=== PATIENT | male | born 2000 | race African-American/Black ===

== ENCOUNTER 2020-01-30 12:40 | Emergency (ER) | payer SELFPAY ==
[~2020-01-30] VITALS: Ht 182.9 cm; Wt 106.8 kg
--- NOTE | 2020-01-30 13:03 | ED.ADGEN ---
Past Medical History Past Medical History: No Pertinent History General Adult EDM: Chief Complaint: CHEST PAIN HPI: HPI: Patient is a 19-year-old male who arrives ambulatory to the emergency department complaining of the abrupt onset of pain with deep breathing. Patient states this began roughly half an hour prior to arrival. Patient describes pain at the left side of his chest at the costal margin where the majority of his pain is. Patient states despite having this pain he is not had any cough or fever. He further denies any known sick contacts. Additionally he denies any history of coronary artery disease. He is awake, alert and anxious appearing. Review of Systems: Review of Systems: Constitutional: Denies fever or chills. [] Eyes: Denies change in visual acuity. [] HENT: Denies nasal congestion or sore throat. [] Respiratory: Positive for pain with deep breathing. Positive for chest wall pain. Denies cough or shortness of breath. [] Cardiovascular: Positive for chest wall pain. Denies edema. [] GI: Denies abdominal pain, nausea, vomiting, bloody stools or diarrhea. [] : Denies dysuria. [] Musculoskeletal: Denies back pain or joint pain. [] Integument: Denies rash. [] Neurologic: Denies headache, focal weakness or sensory changes. [] Endocrine: Denies polyuria or polydipsia. [] Lymphatic: Denies swollen glands. [] Psychiatric: Denies depression or anxiety. [] Allergies: Allergies: Allergies Coded Allergies Type Severity Reaction Last Updated Verified No Known Drug Allergies 01/30/20 No Physical Exam: PE: Constitutional: Well developed, well nourished, no acute distress, non-toxic appearance. [] HENT: Normocephalic, atraumatic, bilateral external ears normal, oropharynx moist, no oral exudates, nose normal. [] Eyes: PERRLA, EOMI, conjunctiva normal, no discharge. [] Neck: Normal range of motion, no tenderness, supple, no stridor. [] Cardiovascular:Heart rate regular rhythm, no murmur [] Lungs & Thorax: Mild tenderness to palpation at the left costal margin as well as left chest wall anteriorly. Bilateral breath sounds clear to auscultation [] Abdomen: Bowel sounds normal, soft, no tenderness, no masses, no pulsatile masses. [] Skin: Warm, dry, no erythema, no rash. [] Back: No tenderness, no CVA tenderness. [] Extremities: No tenderness, no cyanosis, no clubbing, ROM intact, no edema. [] Neurologic: Alert and oriented X 3, normal motor function, normal sensory f unction, no focal deficits noted. [] Psychologic: Affect normal, judgement normal, mood normal. [] Current Patient Data: Vital Signs: Vital Signs Date Time Temp Pulse Resp B/P (MAP) Pulse Ox O2 Delivery O2 Flow Rate FiO2 01/30/20 13:00 98.4 60 17 133/76 (95) 100 Room Air 98.4 EKG: EKG: EKG was obtained at 12:53 PM which demonstrates a normal sinus rhythm with a ventricular rate of 61 bpm. There are no acute ST-T wave changes denoting ischemia. Intervals are normal without ectopy. [] Heart Score: HEART Score for Chest Pain: HEART Score for Chest Pain Response (Comments) Value History Slighlty/Non-Suspicious 0 ECG Normal 0 Age < 45 0 Risk Factors No Risk Factors 0 Troponin < Normal Limit 0 Total 0 Risk Factors: Risk Factors: DM, Current or recent (<one month) smoker, HTN, HLP, family history of CAD, obesity. Risk Scores: Score 0 - 3: 2.5% MACE over next 6 weeks - Discharge Home Score 4 - 6: 20.3% MACE over next 6 weeks - Admit for Clinical Observation Score 7 - 10: 72.7% MACE over next 6 weeks - Early Invasive Strategies Radiology/Procedures: Radiology/Procedures: [][facility] [address] [place] [address] IMAGING REPORT Signed PATIENT: SHAMA GALLARDO ACCOUNT: [id number] : 2000 LOCATION: ER AGE: 19 SEX: M EXAM STATUS: REG ER ORD. PHYSICIAN: RENETTA JUNIOR DO REASON: chest pain PROCEDURE: CHEST PA & LATERAL INDICATION: Reason: chest pain / Spl. Instructions: / History: COMPARISON: None. FINDINGS: 2 view of chest obtained. No focal airspace consolidation. Cardiomediastinal contour unremarkable. No acute osseous abnormality. IMPRESSION: * No focal airspace consolidation or edema. Electronically signed by: Mckinley Starr MD (01/30/2020 1:45 PM) [id number] DICTATED and SIGNED BY: MCKINLEY STARR MD DATE: 01/30/20 [id number] 0 Course & Med Decision Making: Course & Med Decision Making Pertinent Labs and Imaging studies reviewed. (See chart for details) Patient had a chest x-ray as well as EKG obtained which were both within normal limits. After speaking the patient in greater detail does appear that he has a history of anxiety and does not regularly treat this with medication nor does he see a therapist with regularity. I did advise that it be in his best interest to obtain regular medical follow-up with the family physician of his choice as well as considered meeting with a therapist to further deal with his anxiety. The patient understands states he will do so. He does state he feels better now and at rest is without pain. He is nontoxic-appearing and stable for discharge Dragon Disclaimer: Vee Disclaimer: This electronic medical record was generated, in whole or in part, using a voice recognition dictation system. Departure Departure Impression: Primary Impression: Musculoskeletal chest pain Additional Impression: History of anxiety Disposition: 01 DC HOME SELF CARE/HOMELESS Condition: GOOD Referrals: NO PCP (PCP) Patient Instructions: Anxiety and Panic Attacks, Musculoskeletal Pain Scripts Cyclobenzaprine Hcl (CYCLOBENZAPRINE HCL) 5 Mg Tablet 1 TAB PO TID, #15 TAB Prov: RENETTA JUNIOR DO 01/30/20 Hydroxyzine Hcl (HYDROXYZINE HCL) 25 Mg Tablet 1 TAB PO TID PRN for itching, #30 TAB Prov: RENETTA JUNIOR DO 01/30/20 Problem Qualifiers RENETTA JUNIOR DO Jan 30, 2020 13:03
--- NOTE | 2020-01-30 13:48 | RAD ---
INDICATION: Reason: chest pain / Spl. Instructions: / History: COMPARISON: None. FINDINGS: 2 view of chest obtained. No focal airspace consolidation. Cardiomediastinal contour unremarkable. No acute osseous abnormality. IMPRESSION: * No focal airspace consolidation or edema. Electronically signed by: Ruben Sorenson MD (01/30/2020 1:45 PM) [id number]
[2020-01-30] MEDS ORDERED: HYDR25TA PO (14:06)
[2020-01-30] MEDS ORDERED: CYCL5TAB PO (14:06)
[2020-01-30 14:30] VITALS: BP 112/68
== END 2020-01-30 14:48 | disposition home or self-care (01) ==
LOC: ER 12:40
DX: R07.1 Chest pain on breathing (principal); F41.9 Anxiety disorder, unspecified
CPT/HCPCS: 71046; 93005; 99283